=== PATIENT | female | born 1945 | race Caucasian/White ===

== ENCOUNTER → 2016-06-18 | Outpatient (CLI) | payer OTHER | LOC: FIMAGING 07:43 | PROVIDERS: ATTEND Orthopaedic Surgery | DX: M17.12 Unilateral primary osteoarthritis, left knee (principal) ==

== ENCOUNTER → 2016-06-28 | Day surgery (SDC) | payer OTHER ==
[~2016-06-28] MED LIST: ACETAMINOPHEN 325 MG TAB ONE; ACETAMINOPHEN 325 MG TAB PO ONE; CEFAZOLIN 2 GM/DEXTR 100 ML IV ONE; CHLORHEXIDINE GLUC HIBICLENS 118 ML BTL TP ONE; DEXAMETHASONE 4 MG/ML VIAL IVP ONE; DEXAMETHASONE 4 MG/ML VIAL ONE; FAMOTIDINE 20 MG TAB ONE; FAMOTIDINE 20 MG TAB PO ONE; MIDAZOLAM 2 MG/2 ML VIAL ONE; ROPI/epiNEPH/KETOROLAC JOINT COCKTAIL IU ONE; SKIN ADHESIVE (DERMABOND) 1 EACH TP ONE; TRANEXAMIC ACID 3,000 MG in NS 50 ML IRR ONE; TRANEXAMIC ACID 3,000 MG/50 ML BAG IRR ONE; VANCOMYCIN 1 GM VIAL IV ONE; fentaNYL 100 MCG/2 ML INJ ONE
== END | disposition home or self-care (01) ==
LOC: EDSTATUS 07:15 → UNDOADMIN 08:52 → F3N 08:52 → FSGY 08:52
PROVIDERS: ATTEND Orthopaedic Surgery
DX: M17.12 Unilateral primary osteoarthritis, left knee (principal); Z53.9 Procedure and treatment not carried out, unspecified reason
CPT/HCPCS: J0171; J0690; J1100; J1885; J2250; J2795; J3010; J3370

== ENCOUNTER 2016-07-12 05:48 | Observation (INO) | payer OTHER ==
[2016-07-12] MEDS ORDERED: FAMOTIDINE 20 MG TAB PO ONE (06:00)
[2016-07-12] MEDS ORDERED: TRANEXAMIC ACID 3,000 MG in NS 50 ML IRR ONE (06:00)
[2016-07-12] MEDS ORDERED: ROPI/epiNEPH/KETOROLAC JOINT COCKTAIL IU ONE (06:00)
[2016-07-12] MEDS ORDERED: DEXAMETHASONE 4 MG/ML VIAL IVP ONE (06:00)
[2016-07-12] MEDS ORDERED: CHLORHEXIDINE GLUC HIBICLENS 118 ML BTL TP ONE (06:00)
[2016-07-12] MEDS ORDERED: ACETAMINOPHEN 325 MG TAB PO ONE (06:00)
[2016-07-12] MEDS ORDERED: LIDOCAINE 1% 5 ML SDV ONE (06:13)
[2016-07-12] MEDS ORDERED: ceFAZolin 2 GM/DEXTROSE 100 ML IV ONE (06:30)
[2016-07-12] MEDS ORDERED: SKIN ADHESIVE (DERMABOND) 1 EACH TP ONE (06:33)
[2016-07-12] MEDS ORDERED: TRANEXAMIC ACID 3,000 MG/50 ML BAG IRR ONE (06:33)
[2016-07-12] MEDS ORDERED: VANCOMYCIN 1 GM VIAL IV ONE (06:34)
[2016-07-12] MEDS ORDERED: MIDAZOLAM 2 MG/2 ML VIAL ONE (06:52)
[2016-07-12] MEDS ORDERED: PROPOFOL/EMULSION 500 MG/50 ML BOTTLE IV ONE (07:00)
[2016-07-12] MEDS ORDERED: fentaNYL 100 MCG/2 ML INJ ONE ×2 (07:06→08:39)
[2016-07-12] MEDS ORDERED: LACTULOSE 20 GM/30 ML UDCUP PO PRN (08:33)
[2016-07-12] MEDS ORDERED: MAGNESIUM HYDROXIDE 30 ML UDCUP PO PRN (08:33)
[2016-07-12] MEDS ORDERED: PROMETHAZINE HCL 25 MG SUPPR PR PRN (08:33)
[2016-07-12] MEDS ORDERED: POLYETHYLENE GLYCOL 3350 17 GM PKT PO PRN (08:33)
[2016-07-12] MEDS ORDERED: diphenhydrAMINE 25 MG CAP PO PRN (08:33)
[2016-07-12] MEDS ORDERED: ONDANSETRON 4 MG/2 ML VIAL IVP PRN (08:33)
[2016-07-12] MEDS ORDERED: DIPHENOXYLATE/ATROPINE LOMOTIL 1 TAB PO PRN (08:33)
[2016-07-12] MEDS ORDERED: CYCLOBENZAPRINE 10 MG TAB PO PRN (08:33)
[2016-07-12] MEDS ORDERED: TEMAZEPAM 15 MG CAP PO PRN (08:33)
[2016-07-12] MEDS ORDERED: BISACODYL 10 MG SUPP PR PRN (08:33)
[2016-07-12] MEDS ORDERED: METOCLOPRAMIDE 10 MG/2 ML VIAL IVP PRN (08:33)
[2016-07-12] MEDS ORDERED: PHARMACY PAIN CONSULT 1 EA MISC PRN (08:33)
[2016-07-12] MEDS ORDERED: ONDANSETRON DISINTEGRATING 4 MG TAB PO PRN (08:33)
--- NOTE | 2016-07-12 08:33 | POSTOPPROG ---
Post Op Note Date of Operation: 07/12/16 Surgeon: Erika Allen Security Management Specialist: jeremiah allen Anesthesiologist: dr. lucero Anesthesia: Spinal, Other (Specify) (adductor canal block) Pre-op Diagnosis: left knee OA Post-op Diagnosis: same Indication: left knee pain due to OA that failed conservative measures Procedure: L medial knee arthroplasty Findings: severe knee OA, medial compartment Inf/Abcess present in the surg proc area at time of surgery?: No EBL: 50-100
[2016-07-12] MEDS ORDERED: HYDROmorphONE/DILAUDID 1 MG/ML SYR ONE (08:59)
[2016-07-12] MEDS ORDERED: ONDANSETRON 4 MG/2 ML VIAL ONE (09:35)
[2016-07-12] MEDS: SENNOSIDES/DOCUSATE SODIUM TAB PO SCH ×2 (10:41→20:28)
[2016-07-12] MEDS: LR 1,000 ML IV SCH ×2 (10:49→19:07)
[2016-07-12] MEDS: ACETAMINOPHEN 325 MG TAB PO SCH ×3 (12:58→23:07)
--- NOTE | 2016-07-12 15:19 | POSTANESTH ---
Post Anesthetic Evaluation Cardiovascular Status: Normal, Stable Respiratory Status: Normal, Stable Level of Consciousness/Mental Status: Can Participate in Eval Pain Control: Adequate, Prn Tx Ordered Nausea/Vomiting Control: Inadeq, Add Tx Reqired (got zofran) Complications Possibly Related to Anesthesia: None Noted Notes: s/p adductor canal block. Dealing with nausea, but overall doing well with excellent pain control.
[2016-07-12] MEDS: ceFAZolin 2 GM/DEXTROSE 100 ML IV SCH ×2 (17:04→23:07)
[2016-07-12] MEDS ORDERED: PROMETHAZINE HCL 25 MG TAB PO PRN (17:18)
[2016-07-12] MEDS: FAMOTIDINE 20 MG TAB PO SCH (20:28)
[2016-07-12] MEDS: ASPIRIN 325 MG TAB PO SCH (20:28)
[2016-07-12] MEDS ORDERED: PRAVASTATIN SODIUM 20 MG TAB PO SCH (21:00)
[2016-07-13 03:34] VITALS: RESP 12
[2016-07-13] MEDS: ACETAMINOPHEN 325 MG TAB PO SCH ×2 (05:03→11:56)
[2016-07-13 05:52] LABS: HEMATOCRIT 36.3 % (38.0-47.0); HEMOGLOBIN 12.5 g/dL (12.6-16.3)
[2016-07-13 08:12] VITALS: BP 131/61; TEMP 99.1; O2SAT 94
[2016-07-13] MEDS: ASPIRIN 325 MG TAB PO SCH (08:35)
[2016-07-13] MEDS: oxyCODONE IR 5 MG TAB PO PRN ×2 (08:36→11:57)
[2016-07-13] MEDS: SENNOSIDES/DOCUSATE SODIUM TAB PO SCH (08:36)
[2016-07-13] MEDS: FAMOTIDINE 20 MG TAB PO SCH (08:36)
[2016-07-13] MEDS ORDERED: amLODIPine BESYLATE 5 MG TAB PO SCH (09:00)
[2016-07-13] MEDS ORDERED: HYDROCHLOROTHIAZIDE 25 MG TAB PO SCH (09:00)
--- NOTE | 2016-07-13 10:00 | SOAPPROG ---
[facility] Progress Note Assessment/Plan: Assessment: Fadia is doing well POD 1 s/p L med partial knee arthroplasty 1. pain management: pain is well controlled on oral pain meds 2. VTEppx: recommend ASA 325mg daily for 3 weeks. rec SANAM and SCDs 3. Anemia: level expected initially postop, asymptomatic 4. D/c planning: recommend d/c to home pending release from PT today. 5. nausea: improved compared to yesterday, states phenergan has alleviated nausea significantly. will send script via our EMR system at [facility] [place] Plan: 07/13/16 09:58 Subjective: Fadia is doing well today, denies SOB, chest pain. has had moderate nausea and emesis. states phenergan significantly alleviated symptoms. Objective: Vital Signs Temp Pulse Resp BP Pulse Ox 37.3 C 63 12 131/61 H 94 07/13/16 08:00 07/13/16 08:00 07/13/16 08:00 07/13/16 08:00 07/13/16 08:00 Laboratory Results 07/13/16 05:30 07/12/16 07/13/16 07/14/16 05:59 05:59 05:59 Intake Total 2350 Output Total 2625 Balance -275 LLE: incision dressing is clean and dry, NVI, +pf/df ICD10 Worksheet Patient Problems: Problems Problem Status Onset Primary localized osteoarthritis of left knee Acute
--- NOTE | 2016-07-13 11:46 | GOP ---
[f rep st] OPERATIVE REPORT DATE OF OPERATION: 07/12/2016 SURGEON: Zuhair Dumas MD LEAD AUDITOR: CAM Cabral ANESTHESIA: Spinal. PREOPERATIVE DIAGNOSIS: Left knee osteoarthritis. POSTOPERATIVE DIAGNOSIS: Left knee osteoarthritis. PROCEDURE PERFORMED: Left medial compartment partial knee replacement with computer navigation and robotic assistance. FINDINGS: ESTIMATED BLOOD LOSS: 30 mL INDICATIONS: This is a 70-year-old female with progressive pain of the left knee unresponsive to conservative care. Risks and benefits of surgical intervention were explained in detail. DESCRIPTION OF PROCEDURE: The patient was brought to the operating room and placed on the table in supine position. Spinal anesthesia was induced without difficulty. A pneumatic tourniquet was applied about the left proximal thigh and the leg was prepped and draped in sterile fashion. Attention was turned first to the distal aspect of the left femur. At 3 cm proximal to the lateral rise of the femur, 2 percutaneous half pins were placed for fixation of the femoral array. In a similar fashion, 2 pins were placed anterolateral on the tibia for fixation of the tibial array. External land marking and registration of the hip center was performed without difficulty. After exsanguination by elevation, the tourniquet was inflated to 250 mmHg. Incision was made from the tibial tuberosity to the superior pole of the patella. Dissection was carried out through the subcutaneous tissue to the deep fascia using Bovie electrocautery for hemostasis. Medial parapatellar arthrotomy was carried out to the superior pole of the patella. The medial collateral ligament was elevated and the infrapatellar fat pad was resected. Internal femoral and tibial registration was carried out without difficulty and the femoral and tibial checkpoints were placed and verified for accuracy. Attention was turned to the femur. The foot print for the size 2 femoral component was cut with the 6 mm bur using the MED[employer] robotic system and verified for accuracy against the CT based plan. The hole was cut for the femoral post. In a similar fashion, the 6 mm bur was used to cut the foot print for the size 3 tibial component using the MEDEM system and verified for accuracy against the CT based plan, 3 x 8 mm polyethylene. Attention was turned to the posterior aspect of the knee and remnants of the medial meniscus were excised. The posterior capsule was injected with ropivacaine, epinephrine and Toradol. Trial reduction was carried out and there was excellent range of motion, alignment and stability using the size 2 femoral component and the size 3 tibial component. All trials were then removed. The joint was thoroughly irrigated and carefully dried. One package of cement and 1 gram of vancomycin were mixed in the vacuum mixer and placed on the fixation surfaces of all components. The components were implanted and all excess cement was thoroughly removed. Implant placement was verified against the CT view plan and found to be excellent. The tourniquet was deflated and all bleeders were coagulated. The wound was thoroughly irrigated and closed using interrupted sutures of 2-0 Vicryl for the joint capsule. The subcu was closed with 3-0 Vicryl and the skin with 4-0 Monocryl. Dermabond and Steri-Strips were applied, followed by a compressive dressing. The patient was then moved from the operating room to the recovery room in good condition, having tolerated the procedure well. PATHOLOGY: Severe medial compartment osteoarthritis. CASE CLASSIFICATION: Clean. /[id number]/MODL MTDD
--- NOTE | 2016-07-13 11:51 | GDS ---
[f rep st] DISCHARGE SUMMARY ADMISSION DIAGNOSIS: Left knee osteoarthritis. DISCHARGE DIAGNOSIS: Left knee osteoarthritis. PROCEDURE: Knee arthroplasty, medial compartment, robot-assisted. VTE PROPHYLAXIS: Aspirin recommended for 3 weeks daily. BRIEF DESCRIPTION OF HOSPITAL STAY: Patient was admitted for an elective joint arthroplasty. The p atient tolerated the procedure well and has passed physical therapy. The patient was given appropri ate antibiotic prophylaxis and venous thromboembolism prophylaxis. The patient's pain was well cont rolled on oral pain medication, patient was holding down food, and had urinated. Decision was made to discharge the patient. The patient was given post-operative prescriptions pre-operatively. PLAN: Please follow up with Dr. Dumas's office at [facility] on August 01 a t 11 a.m. /[id number]/MODL
[2016-07-13 12:42] VITALS: PULSE 65
== END 2016-07-13 12:09 | disposition home or self-care (01) ==
LOC: INTOOBSV 05:48 → F3N 05:48
PROVIDERS: ADMIT Orthopaedic Surgery; ATTEND Orthopaedic Surgery
DX: M17.12 Unilateral primary osteoarthritis, left knee (principal); M25.562 Pain in left knee; I10 Essential (primary) hypertension; Z88.0 Allergy status to penicillin
CPT/HCPCS: 20985; 27446; 73560; 97110; 97116; 97161; 97165; 97530; C1713; C1776; G8978; G8979; G8987; G8988; G8989; J0171; J0690; J1100; J1170; J1885; J2250; J2405; J2704; J2765; J2795; J3010; J3370